=== PATIENT | female | born 2000 | race Asian ===

== ENCOUNTER 2023-06-25 09:45 | Outpatient (REF) | payer OTHER, SELFPAY ==
--- NOTE | ~2023-06-25 | US_ITS ---
EXAMINATION: US PELVIS WITH TRANSVAGINAL CLINICAL INFORMATION: History of right ovarian cyst, right pelvic pain, irregular menses. Right lower quadrant pain. Last menstrual period June 08, 2023. COMPARISON: None available. TECHNIQUE: Ultrasound of the pelvis is performed using both transabdominal and transvaginal transducers along with Doppler. Transvaginal imaging is performed due to inadequate visualization transabdominally. FINDINGS: The uterus is retropositioned and measures 4.4 x 3.2 x 3.3 cm. No discrete fibroids are appreciated. Endometrial thickness is 6 mm. Right ovarian 4.1 x 3.4 x 3.0 cm cyst appears simple. Right ovary measures 4.4 x 4.0 x 3.6 cm, volume 33 mL. Left ovary measures 2.0 x 1.1 x 1.4 cm and is unremarkable. Limited visualization due to bowel gas. No significant free fluid. US/US pelvic and transvaginal IMPRESSION: Right ovarian 4.1 cm cyst appears simple. Correlation with clinical exam recommended to determine further management including follow-up ultrasound in 6-8 months for this patient with right lower quadrant pain.
== END 2023-06-25 09:46 | disposition home or self-care (01) ==
LOC: HO.UMASIMG 09:45
PROVIDERS: Visit Provider Nurse Practitioner Women's Health
DX: N92.6 Irregular menstruation, unspecified (principal)
CPT/HCPCS: 76830; 76856

== ENCOUNTER 2023-08-06 08:40 | Outpatient (REF) | payer OTHER, SELFPAY ==
--- NOTE | ~2023-08-06 | US_ITS ---
EXAMINATION: US PELVIS CLINICAL INFORMATION: Follow-up known right ovarian cyst COMPARISON: Ultrasound 06/25/2023 TECHNIQUE: Ultrasound of the pelvis is performed using both transabdominal and transvaginal transducers along with Doppler. Transvaginal imaging is performed due to inadequate visualization transabdominally. FINDINGS: Uterus: The uterus is retroverted and measures 7.3 x 4.6 x 5.1 cm. No focal fibroid. The endometrial thickness is 0.80 cm. Adnexa: Both ovaries are visualized. There is normal color flow to the adnexa. There is no ovarian torsion. Is a small amount of free fluid in the anterior cul-de-sac. Right ovary measures 4.4 x 4.2 x 4.9 cm. Volume 48.3 mL. 2.7 x 3.7 x 3.7 cm simple cyst previously measured 4.1 x 3.4 x 3.0 cm on 06/25/2023. This is consistent with a benign cyst. No follow-up imaging is recommended. Left ovary measures 2.6 x 2.5 x 2.6 cm. Volume 8.8 mL US/US pelvic and transvaginal IMPRESSION: 1. Interval decrease in size of 3.7 cm simple right ovarian cyst. This is consistent with a benign cyst. No imaging follow-up is recommended. 2. Normal uterus and left ovary.
== END 2023-08-06 08:41 | disposition home or self-care (01) ==
LOC: HO.UMASIMG 08:40
PROVIDERS: Visit Provider Nurse Practitioner Women's Health
DX: N83.201 Unspecified ovarian cyst, right side (principal)
CPT/HCPCS: 76830; 76856